=== PATIENT | female | born 1965 | race Two or more races ===

== ENCOUNTER 2018-12-12 15:16 | Emergency (ER) | payer SELFPAY ==
[~2018-12-12] VITALS: Ht 162.6 cm; Wt 59.0 kg
[2018-12-12 15:55] VITALS: BP 150/91
[2018-12-12] MEDS ORDERED: cefTRIAXone SODIUM 250 MG VL IM ONE (16:15)
[2018-12-12] MEDS ORDERED: AZITHROMYCIN 250 MG TAB PO ONE (16:15)
== END 2018-12-12 16:34 | disposition home or self-care (01) ==
LOC: ER 15:20
DX: R21 Rash and other nonspecific skin eruption (principal); I10 Essential (primary) hypertension; F17.210 Nicotine dependence, cigarettes, uncomplicated
CPT/HCPCS: 96372; 99283; J0696